=== PATIENT | female | born 1995 | race Asian ===

== ENCOUNTER → 2018-01-14 | Day surgery (SDC) | payer OTHER ==
[2018-01-12 12:37] VITALS: BMI 25.0
--- NOTE | 2018-01-13 14:05 | History and Physical ---
History & Physical Date January 13, 2018. Chief Complaint right ankle pain History of Present Illness The patient is a 22 year old female with complaints of right ankle pain after a fall from a second story balcony trying to get into her apartment. She had pain in the right ankle and x-rays were done at [facility]. She was told she had a fracture and was to follow up with ortho. She is now being set up for surgical tx. Past Medical/Surgical History PMH: None Past surgical hx: none Social hx: 1 ppd smoker x 5 years. Social alcohol use. Allergies Coded Allergies: No Known Allergies (Unverified , 01/12/18) Home Medications Scheduled Ibuprofen (Motrin), 800 MG PO PRN Physical Examination Skin: warm/dry, no rash Eyes: normal inspection ENT: normal ENT inspection Head: normocephalic, atraumatic Neck: supple, trachea midline Respiratory/Chest: lungs clear, normal breath sounds, no respiratory distress Cardiovascular: regular rate, rhythm Abdomen / GI: normal bowel sounds, non tender Extremities: + pertinent finding (right ankle: + swelling. Tender along the lateral malleolus. No ROM or strength testing done.) Diagnosis Right lateral malleolus ankle fx. Plan of Treatment Recommend a right ankle ORIF lateral malleolus fx. All potential risks, benefits, complications, alternatives, and rehab have been discussed and the patient wishes to proceed. She will be scheduled for 01.14.18 with ASA 81 mg BID x 4-6 wks.
[~2018-01-14] VITALS: Ht 162.6 cm; Wt 67.3 kg
[~2018-01-14] MED LIST: ASPI81TA28 PO; ATROPINE SULFATE 0.1 MG/ML 5ML SYR IV PRN; BACITRACIN 50000 UNIT VIAL ONE; BUPIVACAINE 0.25% 30 ML VIAL ONE; DEXAMETHASONE SOD INJ 4 MG/ML VIAL ONE; EpHEDrine SULFATE INJ 50 MG/ML AMP IV PRN; EpINEphrine INJ 1MG/ML AMP 1 MG/ML AMP ONE; FENTANYL CITRATE INJ 50 MCG/1 ML 2 ML VIAL IV PRN; FENTANYL CITRATE INJ 50 MCG/1 ML 2 ML VIAL ONE; HYDROmorphone INJ 2 MG/ML SYR/VIAL ONE; IBUP-1428 PO; LACTATED RINGER'S 1000ML 1,000 ML IV SCH; LIDOCAINE HCL 2% 2 ML VIAL (20MG/ML) ONE; MIDAZOLAM HCL 5 MG/ML 1 ML VIAL ONE; NURSING VERBAL MED ORDER ONE; ONDANSETRON INJ 2 MG/ML 2 ML VIAL IV PRN; ONDANSETRON INJ 2 MG/ML 2 ML VIAL ONE; OXYC-57 PO; OXYCODONE/ACETAMINOPHEN 5-325 TAB PO PRN; PERCOCET HOME PACK PO SCH; PROM25TA9 PO; PROPOFOL IV EMULSION 10 MG/ML 20 ML VIAL ONE
[2018-01-14 13:12] VITALS: Ht 162.6 cm; Wt 67.3 kg
[2018-01-14 13:14] VITALS: BP 102/71; PULSE 63; TEMP 36.9; O2SAT 96
--- NOTE | 2018-01-14 14:29 | History & Physical Bridge Note ---
H&P Re-Evaluation Bridge Note: I have examined the patient, reviewed the History & Physical and in the interval since the performance of the History & Physical I have noted the following changes of clinical significance: No changes noted
--- NOTE | 2018-01-14 15:01 | Discharge Instructions ---
Discharge Instructions Date of Service January 14, 2018. Admission Reason for Admission: Right Ankle Displaced Fracture Of Lateral [place] Discharge Discharge Diagnosis / Problem: right lateral malleolus fracture Discharge Goals Goal(s): Decrease discomfort, Improve function Activity Recommendations Activity Limitations: per Instructions/Follow-up section Weightbearing Status: Right non-weightbearing . Instructions / Follow-Up Instructions / Follow-Up ACTIVITY RECOMMENDATIONS: Limitations: No weight bearing to affected limb at all times. SPECIAL CARE INSTRUCTIONS: * Take Aspirin 81 mg by mouth every 12 hours for 30 days for blood clot prophylaxis. * Some drainage onto the dressing is normal and is no cause for alarm. * Some swelling is natural especially after walking. * When resting, keep your foot elevated above the level of your heart. * Call [facility] if you notice: -Increased drainage -Fever over 101 degrees F -Severe constant pain BANDAGE: * Leave bandage/cast in place unless otherwise directed. * Keep bandage/cast dry at all times. FOLLOW UP VISIT WITH DR. SIMMONS If appointment is not already scheduled: Please call [facility] after you get home today to schedule a follow-up appointment for [address] Simmons at . Current Hospital Diet Patient's current hospital diet: Discharge Diet Recommended Diet: Regular Diet Pending Studies Studies pending at discharge: no Medical Emergencies . Who to Call and When: Medical Emergencies: If at any time you feel your situation is an emergency, please call 911 immediately. . Non-Emergent Contact Non-Emergency issues call your: Surgeon Call Non-Emergent contact if: temperature is above 101, your pain is not controlled, your pain is worsening . "Provider Documentation" section prepared by Balaji Pina. .
--- NOTE | 2018-01-14 18:49 | [facility] Post Operative Brief Note ---
Immediate Operative Summary Operative Date January 14, 2018. Pre-Operative Diagnosis Right displaced lateral malleolar fracture Post-Operative Diagnosis Right displaced lateral malleolar fracture Procedure(s) Performed ORIF Right displaced lateral malleolus fracture Surgeon Dr. Denny Sanders Baggage Handler Surgeon(s) Balaji Palmer Estimated Blood Loss 2cc Findings Consistent with Post-Op Diagnosis Specimens none Drains None Anesthesia Type General Regional Complication(s) none Disposition Accompanied Pt To Recover: no Disposition: Recovery Room / PACU
--- NOTE | 2018-01-14 18:55 | DIAGNOSTIC IMAGING REPORT ---
R ANKLE 2 VIEWS HISTORY: 22 years-old Female RT ORIF LAT MAL FX status post ORIF of the right ankle. COMPARISON: None available TECHNIQUE: 2 spot fluoroscopic images of the right ankle were obtained utilizing 12.6 seconds fluoroscopy time FINDINGS: Lateral plate and screw fixation hardware is noted with 6 lateral approach screws and a single obliquely oriented anterior approach screw. The hardware appears intact. Alignment of the distal fibula is satisfactory. Expected postsurgical swelling about the lateral tissues. No retained foreign bodies. IMPRESSION: Status post ORIF of the distal fibula with satisfactory alignment. The above report was generated using voice recognition software. It may contain grammatical, syntax or spelling errors. Electronically signed by: Marcos Ellsworth M.D. 01/14/2018 6:53 PM Dictated Date/Time: 01/14/2018 6:52 PM
--- NOTE | 2018-01-14 19:32 | Anesthesiology Progress Note ---
Anesthesia Post Op Note Date & Time January 14, 2018 at 19:32 Vital Signs Pain Intensity: 0 Vital Signs Past 12 Hours Date Time Temp Pulse Resp B/P (MAP) Pulse Ox O2 Delivery O2 Flow Rate FiO2 01/14/18 19:20 82 12 124/69 98 Room Air 01/14/18 19:13 36.0 72 14 123/72 97 Room Air 01/14/18 17:30 55 18 106/62 (77) 98 Oxymask 10 01/14/18 17:15 55 11 108/61 (77) 100 Oxymask 10 01/14/18 17:00 62 16 119/58 (78) 99 Oxymask 10 01/14/18 16:52 73 20 108/64 (79) 99 Oxymask 10 01/14/18 16:34 63 20 116/60 (78) 98 Oxymask 10 01/14/18 16:19 58 20 104/48 (66) 96 Oxymask 10 01/14/18 16:08 49 20 108/54 (72) 97 Oxymask 10 01/14/18 13:14 36.9 63 16 102/71 (81) 96 Room Air Notes Mental Status: alert / awake / arousable, participated in evaluation Pt Amnestic to Procedure: Yes Nausea / Vomiting: adequately controlled Pain: adequately controlled Airway Patency, RR, SpO2: stable & adequate BP & HR: stable & adequate Hydration State: stable & adequate Anesthetic Complications: no major complications apparent
[2018-01-14 19:56] VITALS: BP 114/72; PULSE 58; TEMP 36.3; O2SAT 96
[2018-01-14 20:15] VITALS: BP 117/81; PULSE 69; TEMP 36.1; O2SAT 97
--- NOTE | 2018-01-14 21:20 | OPERATIVE REPORT ---
DATE OF OPERATION: 01/14/2018 PREOPERATIVE DIAGNOSIS: Right displaced lateral malleolus fracture. POSTOPERATIVE DIAGNOSIS: Right displaced lateral malleolus fracture. PROCEDURE: Open reduction and internal fixation of right displaced lateral malleolus fracture. SURGEON: Dr. Sanders. SEWING MACHINE OPERATOR: Balaji Pina PA-C who was present for patient positioning, sterile prep and drape, management of retractors and instruments. He was present through the critical portions of the case including wound closure, application of sterile dressing and transport of the patient to recovery. ANESTHESIA: General LMA with popliteal block. SPECIMENS: None. DRAINS: None. COMPLICATIONS: None. 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 She is unable to ambulate. She was seen in the Emergency Department and then eventually in the orthopedic clinic. Radiographs demonstrated displaced lateral malleolus fracture with slight widening of the ankle mortise. Patient was then scheduled for surgery as indicated. All potential risks, benefits, complications, alternatives, rehab, potential for incomplete relief of symptoms, need for further surgery, DVT, PE, , persistent pain, swelling, scarring, weakness, neurovascular injury, wound complications, hardware failure, nonunion and malunion were discussed with the patient. The patient decided to proceed with procedure as indicated. DESCRIPTION OF PROCEDURE: Patient was administered a popliteal block in the preop holding area then was taken to the operative suite and placed supine on the operating room table. After review of the consent and identification of the proper operative site, the patient was then anesthetized and LMA was placed. A tourniquet was placed high on the right thigh over cast padding. Right lower extremity was then sterilely prepped and draped in usual fashion, elevated and exsanguinated with an Esmarch bandage. Tourniquet was inflated to 325 mmHg. Next, a 15 blade scalpel was used to make an incision over the distal lateral aspect of the lateral malleolus. The incision was deepened through the subcutaneous tissue. Meticulous hemostasis was achieved with electrocautery. Full thickness skin flaps were developed and the peroneal tendons were retracted and protected. Next, the periosteum at the site of the fracture was then incised in line with the incision with a 15 blade scalpel. The periosteum was judiciously elevated at the level of the fracture. The fracture was then carefully displaced with a Geoffrey rake and then the fracture was then irrigated and debrided with a dental pick and sterile saline. Next, the fracture ends were anatomically reapproximated with a bone reduction forceps. A single 3.5 mm lag screw was placed from anterior to posterior. We stabilized and compressed the fracture in anatomic position. Next, a 7-hole 1/3 tubular stainless steel plate was contoured and then firmly affixed to the lateral aspect of the fibula using multiple bone screws. Anatomic reduction and fixation was achieved. The C-arm fluoroscope was used to confirm alignment and fixation in both AP and lateral projections. The wound was then copiously irrigated with sterile normal saline until clear followed by closure of the deep periosteum and soft tissue with 2-0 Vicryl. The dermis was closed using buried interrupted 3-0 Vicryl. Skin was closed using a running subcuticular Monocryl. A sterile compressive dressing and bulky plaster splint was applied with the foot held in neutral dorsiflexion. The tourniquet was released, the patient was awakened and taken to recovery in stable condition. I attest to the content of the Intraoperative Record and any orders documented therein. Any exception s are noted below.
== END | disposition home or self-care (01) ==
LOC: C.ACU 12:43
PROVIDERS: ATTEND Orthopaedic Surgery Sports Medicine
DX: S82.61XA Displaced fracture of lateral malleolus of right fibula, initial encounter for closed fracture (principal); W17.89XA Other fall from one level to another, initial encounter; F17.200 Nicotine dependence, unspecified, uncomplicated